=== PATIENT | male | born 1985 | race Caucasian/White ===

== ENCOUNTER 2021-12-27 16:49 | Emergency (ER) | payer BC, SELFPAY ==
--- NOTE | 2021-12-27 16:49 | ECG_ITS ---
APPROVED REPORT Exam: Resting ECG HR:88 bpm ECG Measurements Heart Rate 88 AXES NV 166 P 51 QRSd 101 QRS 51 QT 356 T 9 QTc 402 Conclusion SINUS RHYTHM INCOMPLETE RIGHT BUNDLE BRANCH BLOCK [90+ ms QRS DURATION, TERMINAL R IN V1/V2, 40+ ms S IN I/aVL/V4/V5/V6] BORDERLINE ECG UNCONFIRMED REPORT Electronically signed by : Mark Moss MD 12/27/2021 18:02:10
[2021-12-27 16:51] VITALS: BP 150/100; PULSE 91; RESP 18; TEMP 36.7; O2SAT 98; BMI 29.8
[2021-12-27 17:00] VITALS: BP 150/100; PULSE 91; RESP 17; O2SAT 99
--- NOTE | 2021-12-27 17:04 | XR_ITS ---
PROCEDURE INFORMATION: Exam: XR Chest Exam date and time: 12/27/2021 5:04 PM Age: 36 years old Clinical indication: Pain; Chest pressure; Additional info: Chest pain TECHNIQUE: Imaging protocol: XR of the chest. Views: 2 views. COMPARISON: CR XR CHEST PORTABLE 12/21/2019 5:21 PM FINDINGS: Lungs: No acute pulmonary findings. No pulmonary consolidation. Lung volumes within normal limits. Pleural spaces: Unremarkable. No significant pleural effusion. No pneumothorax. Heart/Mediastinum: The cardiac silhouette is normal. 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 Bones/joints: Minimal spinal degenerative changes, slight disc narrowing and spondylosis, minimal anterior wedge deformities in the midthoracic spine. IMPRESSION: 1. No acute findings. 2. No significant change compared with 12/21/2019.
[2021-12-27 17:15] LABS: Chloride 103 mmol/L (98-107); Sodium 137 mmol/L (136-145)
--- NOTE | 2021-12-27 17:17 | PC.NURSE ---
patient back from radiology
[2021-12-27 17:18] LABS: Blood Urea Nitrogen 20 mg/dl (9-20); Calcium 8.1 mg/dl (8.4-10.2); Carbon Dioxide 23 mmol/L (22.0-30.0); Creatinine Clearance Estimated 180 mL/min (50-200); Estimated Glomerular Filt Rate 109 ml/min (>60); GFR (African American) 132 ML/MIN (>60); Glucose 94 mg/dl (74-100)
[2021-12-27 17:25] LABS: Basophils # 0.1 K/mm3 (0-0.2); Basophils % 1.7 % (0.1-2.0); Eosinophils # 0.1 K/mm3 (0.0-0.4); Eosinophils % 1.1 % (0.1-12.0); Hematocrit 46.3 % (42.0-52.0); Hemoglobin 15.9 g/dL (14.1-18.0); Lymphocytes # 2.1 K/mm3 (0.7-4.5); Lymphocytes % 25.7 % (10-50); Mean Corpuscular HGB Conc 34.4 g/dL (31.8-35.4); Mean Platelet Volume 7.3 fl (7.4-10.4); Monocytes # 0.2 K/mm3 (0.1-1.0); Monocytes % 2.9 % (1.7-9.3); Neutrophils # 5.6 K/mm3 (1.8-7.8); Neutrophils % 68.5 % (37.0-80.0); Platelet Count 165 K/mm3 (142-424); Red Blood Count 5.14 M/mm3 (4.60-6.20); Red Cell Distribution Width 13.2 % (11.5-17.5); White Blood Count 8.2 K/mm3 (4.8-10.8)
[2021-12-27 17:30] VITALS: BP 127/86; PULSE 90; RESP 15; O2SAT 99
--- NOTE | 2021-12-27 17:38 | PC.NURSE ---
Dr Limon speaking with Dr Johnson.
[2021-12-27 17:41] LABS: Troponin I < 0.01 ng/ml (0.00-0.034)
--- NOTE | 2021-12-27 17:58 | HMH.EDGENADL ---
ED Disposition Clinical Impression: Atypical chest pain Disposition: Home Health Service Condition on Discharge: Good Instructions: DI for Atypical Chest Pain Additional Instructions: Additional instructions for CHEST PAIN: See your physician as soon as possible for further evaluation. Return immediately if worsening chest pain, vomiting, shortness of breath, fever, coughing of blood. Referrals: Flaquita Mclean [Primary Care Provider] - - Critical Care Critical Care Time: No Attestation: On 12/27/21, the high probability of a clinically significant, sudden or life threatening deterioration of the following system(s) required my full and direct attention, intervention and personal management. The time I documented below is in addition to time spent performing reported procedures but includes the following listed in this critical care notation. Medical Decision Making - Johnathan Inquiry Pt receiving controlled substance: No Vital Signs: 12/27/21 16:51 12/27/21 17:00 12/27/21 17:30 Temperature 98.0 F Temperature Source Oral Pulse Rate 91 H 90 Pulse Rate [Left Radial] 91 H Respiratory Rate 18 17 15 Blood Pressure 150/100 H 127/86 Blood Pressure [Right Arm] 150/100 H Blood Pressure Mean 111 99 Blood Pressure Mean [Right Arm] 116 Blood Pressure Source [Right Arm] Automatic Cuff Blood Pressure Position [Right Arm] Sitting 02 Sat by Pulse Oximetry 98 99 99 Oxygen Delivery Method Room Air 12/27/21 18:00 12/27/21 18:30 12/27/21 18:40 Temperature 98.0 F Temperature Source Oral Pulse Rate 78 85 90 Pulse Rate [Left Radial] Respiratory Rate 13 16 20 Blood Pressure 133/89 134/95 H 134/95 H Blood Pressure [Right Arm] Blood Pressure Mean 99 104 Blood Pressure Mean [Right Arm] Blood Pressure Source [Right Arm] Blood Pressure Position [Right Arm] 02 Sat by Pulse Oximetry 98 97 Oxygen Delivery Method Room Air - Lab Data Lab Results 12/27/21 16:54: WBC 8.2, RBC 5.14, Hgb 15.9, Hct 46.3, MCV 90.0, MCH 31.0, MCHC 34.4, RDW 13.2, Plt Count 165, MPV 7.3 L, Neut % (Auto) 68.5, Lymph % (Auto) 25.7, [place] % (Auto) 2.9, Eos % (Auto) 1.1, Baso % (Auto) 1.7, Neut # (Auto) 5.6, Lymph # (Auto) 2.1, [place] # (Auto) 0.2, Eos # (Auto) 0.1, Baso # (Auto) 0.1 12/27/21 16:54: Sodium 137, Potassium 4.0, Chloride 103, Carbon Dioxide 23, Anion Gap 15.0, BUN 20, Creatinine 0.80, Estimated Creat Clear 180, Estimated GFR 109, Est GFR ( Amer) 132, Glucose 94, Calcium 8.1 L, Troponin I < 0.01 Result diagrams: 12/27/21 16:54 12/27/21 16:54 - Radiology Data #1 Image(s): Chest Image Reviewed: Yes I have reviewed radiologist's interpretation PROCEDURE INFORMATION: Exam: XR Chest Exam date and time: 12/27/2021 5:04 PM Age: 36 years old Clinical indication: Pain; Chest pressure; Additional info: Chest pain TECHNIQUE: Imaging protocol: XR of the chest. Views: 2 views. COMPARISON: CR XR CHEST PORTABLE 12/21/2019 5:21 PM FINDINGS: Lungs: No acute pulmonary findings. No pulmonary consolidation. Lung volumes within normal limits. Pleural spaces: Unremarkable. No significant pleural effusion. No pneumothorax. Heart/Mediastinum: The cardiac silhouette is normal. Overlying animal rides manager electrodes. Bones/joints: Minimal spinal degenerative changes, slight disc narrowing and spondylosis, minimal anterior wedge deformities in the midthoracic spine. IMPRESSION: 1. No acute findings. 2. No significant change compared with 12/21/2019. - ECG Data Tracing #1 EKG interpreted by Alex Limon MD: Rhythm: sinus Rate: 88 [place]: normal Ectopy: none Conduction: Incomplete right bundle branch block ST Segment Changes: none T Wave Changes: none Q Waves: none No evidence of acute ischemia or injury - PAULO Score for Non-Stemi Age of Patient: 30-39 years old Heart Rate: 90-109 bp
[2021-12-27 18:00] VITALS: BP 133/89; PULSE 78; RESP 13; O2SAT 98
--- NOTE | 2021-12-27 18:13 | PC.NURSE ---
ED MD at
[2021-12-27 18:30] VITALS: BP 134/95; PULSE 85; RESP 16; O2SAT 97
[2021-12-27 18:40] VITALS: BP 134/95; PULSE 90; RESP 20; TEMP 36.7; O2SAT 98
== END 2021-12-27 18:41 | disposition home health service (06) ==
PROVIDERS: Emergency Provider Emergency Medicine; PCP Nurse Practitioner Family
DX: R07.89 Other chest pain (principal); Z87.891 Personal history of nicotine dependence
CPT/HCPCS: 71046; 80048; 84484; 85025; 93005; 99283

== ENCOUNTER 2024-05-21 08:02 | Observation (INO) | payer BC, SELFPAY ==
[2024-05-21] VITALS (8 sets, daily range): BP systolic 107–147; BP diastolic 66–91; PULSE 60–133; RESP 14–20; TEMP 36.7–37; O2SAT 95–98; BMI 29.1
--- NOTE | 2024-05-21 08:21 | ED_ITS ---
Discharge Plan Disposition Patient Disposition: Admitted Clinical Impressions Clinical Impression: Cellulitis, Sepsis, Hypomagnesemia Discharge ED Provider: Moris Ferreira [facility] [place] Chief complaint: Skin/Abscess/Foreign Body Stated complaint: Right ear plugged, Pain in buttox Time Seen by Provider: 05/21/24 08:21 History of Present Illness Provider Complaint: Patient states that he feels like his right ear is stopped up States it was itching like a few days ago and he stuck his finger in his ear and when he pulled it out it had a lot of sticky wax on it so he thinks it is stopped up also States that he takes a testosterone shot ever couple of weeks and on Saturday he was due for the shot and was out of the long needle and he used a short one now thinks it may be infected he is sore and has a hard knot on his right buttox and unable to sit on that side Related Data Home Medications ?Medication ?Instructions ?Recorded ?Confirmed testosterone cypionate 200 mg/mL 200 mg IM .EVERY 2 WEEKS 05/21/24 05/21/24 intramuscular oil Allergies Allergy/AdvReac Type Severity Reaction Status Date / Time No Known Allergies Allergy Verified 05/21/24 12:43 [facility] Disclaimer: The information contained in this section may have been updated after the patient was seen, as this information can be updated by other users. Medical History Low testosterone in male Family History (Updated 05/21/24 @ 12:52 by Nilsa Mccall RN) Other No significant family history Social History (Updated 05/21/24 @ 12:52 by Nilsa Mccall RN) Smoking Status: Current every day smoker second hand exposure: No alcohol intake: current alcohol intake frequency: holidays/special occasions only current occupational status: employed Travel in the last 8 weeks: None household members: spouse housing: house current occupational exposures/hazards: No caffeine: Yes ROS Obtained: Yes All systems reviewed & no additional complaints except as documented and Yes Systems reviewed as appropriate & no additional complaints except as documented Constitutional Constitutional: Reports system reviewed and no additional complaints, except as documented, Reports as per HPI, Denies body ache, Denies chills and Denies fever(s) ENT Ears, Nose, Mouth, and Throat: Reports system reviewed and no additional complaints, except as documented, Reports as per HPI and Reports other (feels like right ear is stopped up with wax) Cardiovascular Cardiovascular: Reports system reviewed and no additional complaints, except as documented and Reports as per HPI Respiratory Respiratory: Reports system reviewed and no additional complaints, except as documented and Reports as per HPI Gastrointestinal Gastrointestingal: Reports system reviewed and no additional complaints, except as documented and as per HPI Integumentary/Breasts Skin/Breast: Reports system reviewed and no additional complaints, except as documented, Reports as per HPI and Reports other Comments: pain in right buttock after testosterone shot on Saturday now has swollen hard knot states feels like he is sitting on a rock Physical Exam General General appearance: alert and in no apparent distress ENT ENT exam: Present mucous membranes moist Expanded ENT Exam TM/Canal exam: Bilateral TM: cerumen impaction Respiratory Respiratory exam: Present normal lung sounds bilaterally; Absent respiratory distress or wheezes Cardiovascular Cardiovascular exam: Present regular rate, normal rhythm and tachycardia Neurological Exam Neurological exam: Present alert, oriented X3 and normal gait Skin Skin exam: Present erythema (large area right buttock, hard, red, warm to the touch and tender since Saturday when he took testosterone shot with short needle) Medical Decision Making Johnathan Inquiry Pt receiving controlled substance: No Johnathan was queried for this patient: No Lab Data 05/21/24 09:09 05/21/24 09:09 Medical Decision Narrative: Patient states that he take testosterone injections every two weeks States normally he has a long needle but was out of them so he used a short needle and since then he has been having pain, redness, warmth and hard area on right buttock that has continued to get worse and larger Denies known fevers but states has felt hot States today he was unable to sit on his right buttock area and also not able to hear out of right ear feels like it is stopped up with wax, patient HR was noted 140's when arrived and checked multiple times and still remained in the mid 130's concern for size of area and elevated HR discussed with patient and he was moved to the ED for further work up and evaluation
[2024-05-21] MEDS: LACTATED RINGERS 1000ML 1,000 ML 999 ML IV ×2 (09:09→10:46)
[2024-05-21] MEDS: KETOROLAC 30MG/ML VIAL 15 MG IV (09:10)
[2024-05-21] MEDS: ACETAMINOPHEN 1,000MG/100ML VIAL 1000 MG IV (09:10)
--- NOTE | 2024-05-21 09:12 | ECG_ITS ---
APPROVED REPORT Exam: Resting ECG HR:123 bpm ECG Measurements Heart Rate 123 AXES RI 164 P 74 QRSd 87 QRS 75 QT 297 T 42 QTc 370 Conclusion SINUS TACHYCARDIA Electronically signed by : LION RUIZ, 05/22/2024 07:02:14
[2024-05-21 09:19] LABS: Basophils # 0.1 K/mm3 (0-0.2); Eosinophils # 0.3 K/mm3 (0.0-0.4); Lymphocytes # 1.7 K/mm3 (0.7-4.5); Monocytes # 0.5 K/mm3 (0.1-1.0); Neutrophils % 83.8 % (37.0-80.0)
[2024-05-21 09:23] LABS: Basophils % 0.8 % (0.1-2.0); Eosinophils % 2.1 % (0.1-12.0); Hematocrit 54.5 % (42.0-52.0); Lymphocytes % 10.3 % (10-50); Mean Corpuscular HGB Conc 33.7 g/dL (31.8-35.4); Mean Corpuscular Hemoglobin 30.6 pg (27.0-31.2); Mean Corpuscular Volume 90.8 fl (80-94); Mean Platelet Volume 7.7 fl (7.4-10.4); Monocytes % 3.1 % (1.7-9.3); Platelet Count 166 K/mm3 (142-424); White Blood Count 16.7 K/mm3 (4.8-10.8)
[2024-05-21 09:24] LABS: Hemoglobin 18.4 g/dL (14.1-18.0)
[2024-05-21 09:25] LABS: MANUAL DIFFERENTIAL MANUAL DIFFERENTIAL (MANUAL DIFF)
[2024-05-21 09:28] LABS: Albumin Level 4.7 g/dl (3.5-5.0); Chloride 103 mmol/L (98-107); Potassium 4.3 mmoL/L (3.5-5.1); Sodium 136 mmol/L (136-145)
[2024-05-21 09:31] LABS: Alanine Aminotransferase 25 U/L (12-78); Albumin/Globulin Ratio 1.3 (1.1-1.8); Alkaline Phosphatase 71 U/L (38-126); Anion Gap 13.3 mEq/L (5-15); Aspartate Amino Transferase 41 U/L (17-59); Bilirubin,Total 1.2 mg/dl (0.2-1.3); Blood Urea Nitrogen 7 mg/dl (9-20); Carbon Dioxide 24 mmol/L (22.0-30.0); Creatinine Clearance Estimated 154 mL/min (50-200); Estimated Glomerular Filt Rate 94 ml/min (>60); GFR (African American) 114 ML/MIN (>60); Globulin 3.5 g/dL (1.3-3.2); Total Protein,Serum 8.2 g/dl (6.3-8.2)
[2024-05-21 09:32] LABS: Calcium 9.2 mg/dl (8.4-10.2); Glucose 78 mg/dl (74-100); Lactic Acid 1.6 mmol/L (0.7-2.1)
[2024-05-21 09:44] LABS: Eosinophils % 3 % (0-3); Lymphocytes % 11 % (10-50); Monocytes % 5 % (2-9); Neutrophils % 81 % (42-76); Total Cells Counted 100
[2024-05-21 09:45] LABS: Platelet Estimate Normal; RBC Morphology Normal
[2024-05-21] MEDS: CEFEPIME HCL 2 GM in 0.9 % SODIUM CHLORIDE 100 ML IV ×2 (10:01→18:05)
--- NOTE | 2024-05-21 10:28 | HMH.EDGENADL ---
Discharge Plan Disposition Patient Disposition: Admitted Clinical Impressions Clinical Impression: Cellulitis, Sepsis, Hypomagnesemia Discharge ED Provider: Moris Ferreira General Adult HPI General Chief complaint: Skin/Abscess/Foreign Body Stated complaint: Right ear plugged, Pain in buttox Time Seen by Provider: 05/21/24 08:21 Mode of Arrival: Ambulatory Source of Information: Patient and Spouse Limitations: No Limitations Description of Symptoms (Recalled from ER Triage Doc. by RN): r ear pain, but redness and warmth to r buttock,tachy History of Present Illness HPI narrative: Please note that above description of symptoms, in this electronic medical record under categorization of recalled from ER triage doctor by RN are reflective of an initial nursing assessment, however, is not reflective of my full history and physical exam that was personally taken and clarified. Consequentially, this preceding description of symptoms, which may include the patient's categorized chief complaint in the EMR, do not reflect my personal clinical impression, and the ultimate description of history of present illness and patient stated complaints should be deferred to this section of the note. Unless stated otherwise or congruent with this section of the note, additional signs, symptoms, or incongruence should be interpreted as inaccurate with my clinical impression. Related Data Previous Rx's ?Medication ?Instructions ?Recorded metoprolol succinate 25 mg 25 mg PO DAILY ##30 12/21/19 tablet,extended release 24 hr Allergies Allergy/AdvReac Type Severity Reaction Status Date / Time No Known Allergies Allergy Verified 12/21/19 16:54 [facility] Disclaimer: The information contained in this section may have been updated after the patient was seen, as this information can be updated by other users. Social History Smoking Status: Current every day smoker second hand exposure: No alcohol intake: current alcohol intake frequency: holidays/special occasions only current occupational status: employed Travel in the last 8 weeks: None household members: spouse housing: house current occupational exposures/hazards: No caffeine: Yes ROS Obtained: Yes All systems reviewed & no additional complaints except as documented Physical Exam General General appearance: alert, in no apparent distress and anxious Head Head exam: atraumatic and normocephalic Eye Eye exam: Present normal appearance, PERRL and EOMI Neck Neck exam: Present normal inspection, full ROM and trachea midline Respiratory Respiratory exam: Absent respiratory distress, wheezes, stridor, accessory muscle use or prolonged expiratory phase Cardiovascular Cardiovascular exam: Present normal rhythm, tachycardia and other (Pulses equal symmetric in upper and lower extremities) Abdominal Exam Abdominal exam: Present soft; Absent distention, tenderness or pulsatile mass Extremities Exam Extremities exam: Absent edema Back Exam Back exam: Present other (Right gluteal erythema, induration, redness and warmth concerning for cellulitis. No palpable fluctuance) Neurological Exam Neurological exam: Present alert, oriented X3 and CN II-XII intact; Absent motor sensory deficit Skin Skin exam: Present warm and dry; Absent diaphoresis or erythema Medical Decision Making Medical Records Medical records reviewed: Yes I reviewed the patient's medical records. Johnathan Inquiry Pt receiving controlled substance: No Johnathan was queried for this patient: No Vital Signs: 05/21/24 08:56 05/21/24 09:00 05/21/24 09:30 Temperature 98.4 F Temperature Source Oral Pulse Rate 126 H 111 H Pulse Rate [Left] 133 H Respiratory Rate 20 14 Blood Pressure 135/88 129/73 Blood Pressure [Left Arm] 139/91 H Blood Pressure Mean [Left Arm] 107 Blood Pressure Source 02 Sat by Pulse Oximetry 95 96 97 Oxygen Delivery Method Room Air 05/21/24 10:00 05/21/24 12:05 Temperature 98.6 F Temperature Source Oral Pulse Rate 109 H 105 H Pulse Rate [Left] Respiratory Rate 18 18 Blood Pressure 124/80 133/75 Blood Pressure [Left Arm] Blood Pressure Mean [Left Arm] Blood Pressure Source Automatic Cuff 02 Sat by Pulse Oximetry 96 Oxygen Delivery Method Room Air Lab Data Lab Results 05/21/24 09:09: WBC 16.7 H, RBC 6.00, Hgb 18.4 H, Hct 54.5 H, MCV 90.8, MCH 30.6, MCHC 33.7, RDW 14.0, Plt Count 166, MPV 7.7, Neut % (Auto) 83.8 H, Lymph % (Auto) 10.3, [place] % (Auto) 3.1, Eos % (Auto) 2.1, Baso % (Auto) 0.8, Neut # (Auto) 14.0 H, Lymph # (Auto) 1.7, [place] # (Auto) 0.5, Eos # (Auto) 0.3, Baso # (Auto) 0.1, Total Counted 100, Neutrophils % (Manual) 81 H, Lymphocytes % (Manual) 11, Monocytes % (Manual) 5, Eosinophils % (Manual) 3, Platelet Estimate Normal, RBC Morphology Normal, Sodium 136, Potassium 4.3, Chloride 103, Carbon Dioxide 24, Anion Gap 13.3, BUN 7 L, Creatinine 0.90, Estimated Creat Clear 154, Estimated GFR 94, Est GFR ( Amer) 114, Glucose 78, Lactate 1.6, Calcium 9.2, Magnesium 0.6 L, Total Bilirubin 1.2, AST 41, ALT 25, Alkaline Phosphatase 71, Total Protein 8.2, Albumin 4.7, Globulin 3.5 H, Albumin/Globulin Ratio 1.3, TSH 0.59, Thyroxine (T4) 6.3 05/21/24 09:09 05/21/24 09:09 Orders (Tests/Meds): ED MEDICATIONS Generic Name Dose Route Start Last Admin Trade Name Freq PRN Reason Stop Dose Admin Acetaminophen 650 mg 05/21/24 11:27 Acetaminophen 325mg Tab PO 06/20/24 11:26 Q4HP PRN Fever or Mild Pain (1-3) Heparin Sodium (Porcine) 5,000 unit 05/21/24 11:30 Heparin Sodium 5,000 Unit/Ml Vial SQ 06/20/24 11:29 Q8H RAEANN Sodium Chloride 1,000 mls @ 50 mls/hr 05/21/24 11:30 Sod Chlor 0.9% 1000ml Bag IV 06/20/24 11:29 .Q20H RAEANN Ondansetron HCl 4 mg 05/21/24 11:27 Ondansetron 4mg/2ml Vial IV 06/20/24 11:26 Q8HP PRN Nausea Discontinued Medications Generic Name Dose Route Start Last Admin Trade Name Freq PRN Reason Stop Dose Admin Acetaminophen 1,000 mg 05/21/24 08:58 05/21/24 09:10 Acetaminophen 1,000mg/100ml Vial IV 05/21/24 08:59 1,000 mg ONCE ONE Administration Lactated Ringer's 1,000 mls @ 999 mls/hr 05/21/24 09:00 05/21/24 09:09 Lactated Ringer's 1000 Ml Bag IV 05/21/24 10:00 999 mls/hr .Q1H1M ONE Administration Cefepime HCl 2 gm/ Sodium 100 mls @ 200 mls/hr 05/21/24 09:48 05/21/24 10:01 Chloride IV 05/21/24 10:17 200 mls/hr ONCE ONE Administration Vancomycin/PEG/NA[place]/Lysine/Water 1.75 gm in 350 mls @ 175 mls/hr 05/21/24 10:00 05/21/24 10:43 Vancomycin 1.75gm/350ml (Peg) Premix IV 05/21/24 11:59 175 mls/hr ONCE ONE Administration Lactated Ringer's 1,000 mls @ 999 mls/hr 05/21/24 10:32 05/21/24 10:46 Lactated Ringer's 1000 Ml Bag IV 05/21/24 11:32 999 mls/hr .Q1H1M ONE Administration Magnesium Sulfate 2 gm in 50 mls @ 50 mls/hr 05/21/24 10:53 05/21/24 10:59 Magnesium Sulfate 2gm/50ml Premix IV 05/21/24 11:52 50 mls/hr ONCE ONE Administration Magnesium Sulfate 2 gm in 50 mls @ 50 mls/hr 05/21/24 10:53 05/21/24 11:40 Magnesium Sulfate 2gm/50ml Premix IV 05/21/24 11:52 50 mls/hr ONCE ONE Administration Lactated Ringer's 2,330 mls @ 1,165 mls/hr 05/21/24 10:15 05/21/24 11:39 Lactated Ringer's 1000 Ml Bag 30 ml/kg infuse over 2 hr (2330 ml) 05/21/24 12:14 Not Given IV .Q2H ONE Ketorolac Tromethamine 15 mg 05/21/24 08:58 05/21/24 09:10 Ketorolac 30mg/Ml Vial IV 05/21/24 08:59 15 mg ONCE ONE Administration Magnesium Oxide 800 mg 05/21/24 10:53 05/21/24 11:00 Magnesium Oxide 400mg Tablet PO 05/21/24 10:54 800 mg ONCE ONE Administration Miscellaneous 1 each 05/21/24 10:00 05/21/24 10:42 Vancomycin Consult Request NOTAPPLIC 06/20/24 09:59 1 each CONSULT PHARMACY RAEANN Administration ORDERS Category Date Time Status POCUS Point of Care (ER Only) Stat Exams 05/21/24 08:58 Completed Basic Metabolic Panel AMLAB Lab 05/22/24 06:00 Ordered Basic Metabolic Panel AMLAB Lab 05/23/24 06:00 Ordered Basic Metabolic Panel AMLAB Lab 05/24/24 06:00 Ordered Complete Blood Count Auto Diff AMLAB Lab 05/22/24 06:00 Ordered Complete Blood Count Auto Diff AMLAB Lab 05/23/24 06:00 Ordered Complete Blood Count Auto Diff AMLAB Lab 05/24/24 06:00 Ordered Complete Blood Count Auto Diff Stat Lab 05/21/24 09:09 Completed Comprehensive Metabolic Panel Stat Lab 05/21/24 09:09 Completed Lactic Acid Stat Lab 05/21/24 09:09 Completed Magnesium AMLAB Lab 05/22/24 06:00 Ordered Magnesium AMLAB Lab 05/23/24 06:00 Ordered Magnesium Stat Lab 05/21/24 09:09 Completed T4 (Thyroxine) Stat Lab 05/21/24 09:09 Completed TSH [Thyroid Stimulating Hormone] Stat Lab 05/21/24 09:09 Completed Blood Culture Stat Micro 05/21/24 09:11 Received Medical Decision Narrative: 38 history of testosterone deficiency receiving at home injections presenting with right gluteal swelling. Patient patient's providing history. Patient states that he received a testosterone injection 3 to 4 days ago, started having pain since then. Is now red, warm, associated with significant pain that is moderate in intensity, does not radiate. No blood in the stool, patient has been feeling febrile at home. Also states that today is the first day of felt jittery and anxious. No nausea, vomiting, diarrhea, chest pain, shortness of breath, any other concerns. History was obtained via conversation with patient and . On arrival, patient hemodynamically stable, alert, oriented x4, appropriate, GCS 15, moving all extremities spontaneously, pupils equal and reactive to light. Full physical exam performed and significant for anxious female no acute distress. He is tachycardic, normotensive. Afebrile. Lungs are clear to auscultation, cardiac exam with normal pulses, normal S1-S2. Right buttock is erythematous, inflamed, indurated, infected without obvious fluctuance. Differential includes cellulitis, abscess, sepsis, metabolic abnormality, endocrinologic abnormality, substance induced, withdrawal, among others. Patient placed on continuous cardiac monitoring and continuous pulse ox with initial blood pressure 139/91, heart rate 133, saturation 95% on room air. Independent interpretation of EKG shows sinus tachycardia 123 beats a minute without ST or T wave changes concerning for acute ischemia. MN 164, QRS 87, QTc 370 with normal axis. Patient was given Toradol, acetaminophen, fluid bolus, empiric vancomycin and cefepime for symptomatic management and correction of underlying abnormalities. Workup independently interpreted and significant for leukocytosis and neutrophilia. Lactate negative, chemistry nonactionable. Patient's magnesium low at 0.6. Normal thyroid test. On independent interpretation of imaging, patient with cellulitis without abscess right buttock on bedside [id number] ultrasound. On reevaluation, patient resting comfortably. Tachycardia improving and patient largely asymptomatic. Also given 4 g magnesium IV and 800 mg p.o. Given empiric antibiotics for developing sepsis in the setting of large cellulitis. Because patient high risk for clinical decompensation, deemed appropriate for inpatient admission. Results were relayed to patient who voiced understanding and patient was agreeable to inpatient admission and management. Patient was admitted to the hospital for further definitive management. Bezel Cutter disclaimer Much of this encounter note is an electronic carbon furnace operator spoken language to printed text. Electronic carbon furnace operator of the spoken language may permit errors. Although I have reviewed the note, some errors may still exist. Procedures Limited Ultrasound Indication:: Limited soft tissue ultrasound Indication: Right buttock cellulitis Identified structures: Location: Right buttock Findings: Cellulitis without abscess right buttock, extensive Impression: Extensive cellulitis of right buttock without loculated fluid collection Images were saved to permanent archive The study was technically adequate Soft Tissue CPT Codes: CPT Neck: 08472-22 CPT Upper extremity: 55730-60 CPT Axilla: 56157-41 CPT Chest wall: 40553-04 CPT Breast: 52010-54-XM/LT (complete), 39453-36-OU/LT (limited), CPT Upper Back: 56475-83 CPT Lower Back: 40566-73 CPT Abdominal Wall: 08142-57 CPT Pelvic Wall: 61652-00 CPT Lower Extremity: 60846-49 CPT Other Soft Tissue: 40127-64 This study was performed by me, and I personally interpreted all images/videos. Based on my clinical judgement, these images were adequate and did not necessitate further imaging. Critical Care Critical Care Time Critical Care Time: No
--- NOTE | 2024-05-21 10:31 | ECG_ITS ---
APPROVED REPORT Exam: Resting ECG HR:116 bpm ECG Measurements Heart Rate 116 AXES NE 152 P 68 QRSd 87 QRS 81 QT 303 T 12 QTc 372 Conclusion SINUS TACHYCARDIA Electronically signed by : LION RUIZ, 05/22/2024 07:02:42
[2024-05-21] MEDS: VANCOMYCIN CONSULT REQUEST 1 EACH NOTAPPLIC (10:42)
[2024-05-21] MEDS: VANCOMYCIN/WATER FOR INJ (PEG) 1.75 GM/350 ML PIGGYBACK IV (10:43)
[2024-05-21 10:46] LABS: Magnesium 0.6 mg/dl (1.6-2.3)
--- NOTE | 2024-05-21 10:47 | PC.NURSE ---
Mary Grace from lab called critical magnesium of 0.6. Repeated and verified. Dr. Ferreira notified.
[2024-05-21] MEDS: MAGNESIUM SULFATE IN WATER 2 GM/50 ML PIGGYBACK IV ×2 (10:59→11:40)
[2024-05-21 11:00] LABS: T4 (Thyroxine) 6.3 ug/dl (5.53-11.0)
[2024-05-21] MEDS: MAGNESIUM OXIDE 400MG TABLET 800 MG PO (11:00)
[2024-05-21 11:14] LABS: Thyroid Stimulating Hormone 0.59 uIU/mL (0.465-4.68)
--- NOTE | 2024-05-21 11:28 | PC.NURSE ---
Dr. Ferreira s/w Dr. Gooden for admission
--- NOTE | 2024-05-21 11:40 | PC.NURSE ---
PT ADMITTED ROOM 200, ALL STAFF NOTIFIED
--- NOTE | 2024-05-21 11:49 | PC.NURSE ---
Gave report to Rosa RUIZ on Med/Surg
[2024-05-21] MEDS: 0.9 % SODIUM CHLORIDE 1000ML 1,000 ML 50 ML IV (13:55)
--- NOTE | 2024-05-21 14:24 | PC.NURSE ---
Spoke to Dr. Huerta about surgery consult. Dr Huerta stated that since the pt was not made NPO and had lunch that he would not be able to do surgery today if needed, that he would be in to consult with pt in the morning and to make sure the pt was NPO at midnight and on an antibiotic.
--- NOTE | 2024-05-21 15:26 | EXP.PHA.CONS ---
Pharmacy Consult Date: 05/21/24 Time: 15:27 Referring provider: DR. THOMASON Reason for Consult:: VANCOMYCIN DOSING Allergies Allergy/AdvReac Type Severity Reaction Status Date / Time No Known Allergies Allergy Verified 05/21/24 12:43 Home Medications ?Medication ?Instructions ?Recorded ?Confirmed ?Type testosterone cypionate 200 mg/mL 200 mg IM .EVERY 2 WEEKS 05/21/24 05/21/24 History intramuscular oil New Prescriptions to Start Prescriptions: Height: 1.83 m Weight: 97.579 kg Laboratory Results:: Laboratory Results - last 24 hr 05/21/24 09:09: WBC 16.7 H, RBC 6.00, Hgb 18.4 H, Hct 54.5 H, MCV 90.8, MCH 30.6, MCHC 33.7, RDW 14.0, Plt Count 166, MPV 7.7, Neut % (Auto) 83.8 H, Lymph % (Auto) 10.3, [place] % (Auto) 3.1, Eos % (Auto) 2.1, Baso % (Auto) 0.8, Neut # (Auto) 14.0 H, Lymph # (Auto) 1.7, [place] # (Auto) 0.5, Eos # (Auto) 0.3, Baso # (Auto) 0.1, Total Counted 100, Neutrophils % (Manual) 81 H, Lymphocytes % (Manual) 11, Monocytes % (Manual) 5, Eosinophils % (Manual) 3, Platelet Estimate Normal, RBC Morphology Normal, Sodium 136, Potassium 4.3, Chloride 103, Carbon Dioxide 24, Anion Gap 13.3, BUN 7 L, Creatinine 0.90, Estimated Creat Clear 154, Estimated GFR 94, Est GFR ( Amer) 114, Glucose 78, Lactate 1.6, Calcium 9.2, Magnesium 0.6 L, Total Bilirubin 1.2, AST 41, ALT 25, Alkaline Phosphatase 71, Total Protein 8.2, Albumin 4.7, Globulin 3.5 H, Albumin/Globulin Ratio 1.3, TSH 0.59, Thyroxine (T4) 6.3 Medical History: Medical History (Updated 05/21/24 @ 12:51 by Nilsa Mccall RN) Low testosterone in male Assessment and Plan Assessment and plan all Dx Assessment and Plan for all problems:: Pharmacokinetic dosing service Objective: Patient: Floor: Age: 38 yo Serum creatinine: 0.9 mg/dL Height: 72.0 Inches Weight (kg): 97.6 Assessment: IBW (kg): 77.60 Dosing wt(kg): 97.6 Estimated Creatinine clearance (ml/min): 122.1 CRCL method: Cockcroft and Gault using ibw(default). Drug selected: Vancomycin Loading dose (mg): 0 Vd (liters): 78.1 (factor used: 0.8 L/kg) Terry (hr-1): 0.106 Half life (hrs): 6.54 Recommended dose: 1500 mg Interval: 8 hrs Infusion time (hrs): 2.0 Predicted peak (mcg/mL): 30.3 Predicted trough (mcg/mL): 16.04 Total body weight is being used for vancomycin dosing. Recommendations: Give Vancomycin 1500 mg q 8 hrs with an expected Cpeak of 30.3 mcg/ml and an expected Ctrough of 16.04 mcg/ml ----Vanco only - ignore for aminoglycosides----- CLvanco= 8.28 L/hr AUC 0-24 /JACEY Data: JACEY 0.5 mcg/mL: AUC/JACEY: 1087.0 JACEY 1.0 mcg/mL: AUC/JACEY: 543.5 --------- JACEY 1.5 mcg/mL: AUC/JACEY: 362.3 JACEY 2.0 mcg/mL: AUC/JACEY: 271.7
--- NOTE | 2024-05-21 17:25 | P.HP_ITS ---
History of Present Illness *Admission Date: 05/21/24 *Reason for visit:: Hip Pain *History of present illness: karey is a 38-year-old male who presents to the hospital due to right hip swelling after receiving recent testosterone injection. According the patient he has been getting testosterone injections for testosterone deficiency. Patient mentions his swelling is associated with warmth, redness, pain, it was getting worse so he decided to come to the hospital he also reported fevers. Otherwise denied nausea vomiting diarrhea constipation dysuria. [facility] Disclaimer: The information contained in this section may have been updated after the patient was seen, as this information can be updated by other users. Medical History Low testosterone in male Family History (Updated 05/21/24 @ 12:52 by Nilsa Mccall RN) Other No significant family history Social History (Updated 05/21/24 @ 12:52 by Nilsa Mccall RN) Smoking Status: Current every day smoker second hand exposure: No alcohol intake: current alcohol intake frequency: holidays/special occasions only current occupational status: employed Travel in the last 8 weeks: None household members: spouse housing: house current occupational exposures/hazards: No caffeine: Yes Review of Systems Constitutional Constitutional: Reports system reviewed and no additional complaints, except as documented Meds Home Medications and Allergies Home Medications ?Medication ?Instructions ?Recorded ?Confirmed ?Type testosterone cypionate 200 mg/mL 200 mg IM .EVERY 2 WEEKS 05/21/24 05/21/24 History intramuscular oil New Prescriptions to Start Prescriptions: Allergies Allergy/AdvReac Type Severity Reaction Status Date / Time No Known Allergies Allergy Verified 05/21/24 12:43 Exam Data for Last 24 hours Vital signs and Labs for Last 24 Hours: Temp Pulse Resp BP Pulse Ox O2 Del Method 98.3 F 104 H 18 140/91 H 98 Room Air 05/21/24 16:00 05/21/24 16:00 05/21/24 16:00 05/21/24 16:00 05/21/24 16:05/21/24 16:45 Laboratory Results - last 24 hr 05/21/24 09:09: WBC 16.7 H, RBC 6.00, Hgb 18.4 H, Hct 54.5 H, MCV 90.8, MCH 30.6, MCHC 33.7, RDW 14.0, Plt Count 166, MPV 7.7, Neut % (Auto) 83.8 H, Lymph % (Auto) 10.3, [place] % (Auto) 3.1, Eos % (Auto) 2.1, Baso % (Auto) 0.8, Neut # (Auto) 14.0 H, Lymph # (Auto) 1.7, [place] # (Auto) 0.5, Eos # (Auto) 0.3, Baso # (Auto) 0.1, Total Counted 100, Neutrophils % (Manual) 81 H, Lymphocytes % (Manual) 11, Monocytes % (Manual) 5, Eosinophils % (Manual) 3, Platelet Estimate Normal, RBC Morphology Normal, Sodium 136, Potassium 4.3, Chloride 103, Carbon Dioxide 24, Anion Gap 13.3, BUN 7 L, Creatinine 0.90, Estimated Creat Clear 154, Estimated GFR 94, Est GFR ( Amer) 114, Glucose 78, Lactate 1.6, Calcium 9.2, Magnesium 0.6 L, Total Bilirubin 1.2, AST 41, ALT 25, Alkaline Phosphatase 71, Total Protein 8.2, Albumin 4.7, Globulin 3.5 H, Albumin/Globulin Ratio 1.3, TSH 0.59, Thyroxine (T4) 6.3 I & O for Last 24 hours: Intake & Output 05/18/24 05/19/24 05/20/24 05/21/24 23:59 23:59 23:59 23:59 Intake Total 2750 / 2750 Output Total 0 / 0 Balance 2750 / 2750 Weight 97.579 kg Constitutional Constitutional: no acute distress *Routine HEENT Exam Head: Present normocephalic Eye: Present EOMI and PERRL ENT: Present mucous membranes moist *Routine Neck Exam Neck: Present supple; Absent lymphadenopathy *Routine Respiratory Exam Respiratory: Present CTA bilaterally *Routine Cardiovascular Exam Cardiovascular: Present RRR *Routine Abdominal Exam Abdominal: Present soft and normoactive bowel sounds; Absent tenderness *Routine Rectal Exam Rectal:: deferred *Routine Genitalia Exam Genitalia:: deferred *Routine Extremities Exam Extremities: Absent cyanosis, clubbing or edema Comments: swelling on buttock r side, red and warm *Routine Skin Exam Skin: Present warm; Absent rash *Routine Neurological Exam Neurological: Present alert and oriented X3 Assessment and Plan *Assessment and plan (1) Cellulitis: Status: Acute Category: Medical Code(s): L03.90 - Cellulitis, unspecified (2) Sepsis: Status: Acute Category: Medical Code(s): A41.9 - Sepsis, unspecified organism (3) Hypomagnesemia: Status: Acute Category: Medical Code(s): E83.42 - Hypomagnesemia Plan karey is a 38-year-old male who presents to the hospital due to right hip swelling after receiving recent testosterone injection. According the patient he has been getting testosterone injections for testosterone deficiency. Patient mentions his swelling is associated with warmth, redness, pain, it was getting worse so he decided to come to the hospital he also reported fevers. Otherwise denied nausea vomiting diarrhea constipation dysuria. Assessment and plan Right gluteal abscess, cellulitis Leukocytosis, tachycardia Start vancomycin, cefepime Consult general surgery for possible I&D Check blood cultures dvt ppx - lovenox
[2024-05-21] MEDS: ACETAMINOPHEN 325MG TAB 650 MG PO (18:10)
[2024-05-21] MEDS: HEPARIN SODIUM 5,000 UNIT/ML VIAL 5000 UNIT SQ (18:46)
[2024-05-21] MEDS: VANCOMYCIN/WATER FOR INJ (PEG) 1.5 GM/300 ML PIGGYBACK IV (20:17)
[2024-05-21] MEDS: MORPHINE 4MG/ML SYRINGE 4 MG IV (20:17)
[2024-05-22] VITALS (15 sets, daily range): BP systolic 117–186; BP diastolic 50–93; PULSE 80–98; RESP 16–20; TEMP 36.2–36.7; O2SAT 94–97
[2024-05-22] MEDS: CEFEPIME HCL 2 GM in 0.9 % SODIUM CHLORIDE 100 ML IV ×2 (01:24→09:58)
[2024-05-22] MEDS: VANCOMYCIN/WATER FOR INJ (PEG) 1.5 GM/300 ML PIGGYBACK IV (04:05)
[2024-05-22] MEDS: MORPHINE 4MG/ML SYRINGE 4 MG IV ×2 (04:07→10:44)
--- NOTE | 2024-05-22 04:52 | PC.NURSE ---
Alert and oriented. Complained of pain 2 times, treated per dec. Rested well throughout the night. Antibiotics given per dec. No other complaints from patient. Abscess to right buttock, red, hard, warm to touch. Call light in reach.
--- NOTE | 2024-05-22 06:52 | EXP.SURG.CON ---
History of Present Illness *Admission Date: 05/21/24 *Reason for visit:: Right buttock abscess *History of present illness: This is a 38-year-old gentleman seen in consultation from the primary service for evaluation regarding right buttock abscess. Please see HPI forwarded from admission H&P below. Emergency department evaluation included bedside ultrasound that revealed no large pocket purulence. Forwarded from admission H&P: Patient is a 38-year-old male who presents to the hospital due to right hip swelling after receiving recent testosterone injection. According the patient he has been getting testosterone injections for testosterone deficiency. Patient mentions his swelling is associated with warmth, redness, pain, it was getting worse so he decided to come to the hospital he also reported fevers. Otherwise denied nausea vomiting diarrhea constipation dysuria. [facility] Disclaimer: The information contained in this section may have been updated after the patient was seen, as this information can be updated by other users. Medical History (Updated 05/22/24 @ 06:54 by Tucker Huerta MD) Low testosterone in male Family History (Updated 05/21/24 @ 12:52 by Nilsa Mccall RN) No significant family history Social History (Updated 05/21/24 @ 12:52 by Nilsa Mccall RN) Smoking Status: Current every day smoker second hand exposure: No alcohol intake: current alcohol intake frequency: holidays/special occasions only current occupational status: employed Travel in the last 8 weeks: None household members: spouse housing: house current occupational exposures/hazards: No caffeine: Yes Meds Home Medications and Allergies Home Medications ?Medication ?Instructions ?Recorded ?Confirmed ?Type testosterone cypionate 200 mg/mL 200 mg IM .EVERY 2 WEEKS 05/21/24 05/21/24 History intramuscular oil New Prescriptions to Start Prescriptions: Allergies Allergy/AdvReac Type Severity Reaction Status Date / Time No Known Allergies Allergy Verified 05/21/24 12:43 Exam (Inpt) Vital signs and Labs for Last 24 Hours: Temp Pulse Resp BP Pulse Ox O2 Del Method 97.8 F 98 H 20 147/93 H 95 Room Air 05/22/24 04:00 05/22/24 04:00 05/22/24 04:00 05/22/24 04:00 05/22/24 04:00 05/22/24 04:51 Laboratory Results - last 24 hr 05/21/24 09:09: WBC 16.7 H, RBC 6.00, Hgb 18.4 H, Hct 54.5 H, MCV 90.8, MCH 30.6, MCHC 33.7, RDW 14.0, Plt Count 166, MPV 7.7, Neut % (Auto) 83.8 H, Lymph % (Auto) 10.3, [place] % (Auto) 3.1, Eos % (Auto) 2.1, Baso % (Auto) 0.8, Neut # (Auto) 14.0 H, Lymph # (Auto) 1.7, [place] # (Auto) 0.5, Eos # (Auto) 0.3, Baso # (Auto) 0.1, Total Counted 100, Neutrophils % (Manual) 81 H, Lymphocytes % (Manual) 11, Monocytes % (Manual) 5, Eosinophils % (Manual) 3, Platelet Estimate Normal, RBC Morphology Normal, Sodium 136, Potassium 4.3, Chloride 103, Carbon Dioxide 24, Anion Gap 13.3, BUN 7 L, Creatinine 0.90, Estimated Creat Clear 154, Estimated GFR 94, Est GFR ( Amer) 114, Glucose 78, Lactate 1.6, Calcium 9.2, Magnesium 0.6 L, Total Bilirubin 1.2, AST 41, ALT 25, Alkaline Phosphatase 71, Total Protein 8.2, Albumin 4.7, Globulin 3.5 H, Albumin/Globulin Ratio 1.3, TSH 0.59, Thyroxine (T4) 6.3 I & O for Labs for Last 24 Hours: Intake & Output 05/19/24 05/20/24 05/21/24 05/22/24 11:59 11:59 11:59 11:59 Intake Total 4687 / 4687 Output Total 0 / 0 Balance 4687 / 4687 Weight 215 lb 2 oz 215 lb 2 oz Constitutional: no acute distress Respiratory: Absent respiratory distress Cardiac: Absent Tachycardia Comment:: Right superior/mid buttock region with focal erythematous blush/induration. Results Labs 05/21/24 09:09 05/21/24 09:09 Labs: Laboratory Results - last 24 hr 05/21/24 09:09: WBC 16.7 H, RBC 6.00, Hgb 18.4 H, Hct 54.5 H, MCV 90.8, MCH 30.6, MCHC 33.7, RDW 14.0, Plt Count 166, MPV 7.7, Neut % (Auto) 83.8 H, Lymph % (Auto) 10.3, [place] % (Auto) 3.1, Eos % (Auto) 2.1, Baso % (Auto) 0.8, Neut # (Auto) 14.0 H, Lymph # (Auto) 1.7, [place] # (Auto) 0.5, Eos # (Auto) 0.3, Baso # (Auto) 0.1, Total Counted 100, Neutrophils % (Manual) 81 H, Lymphocytes % (Manual) 11, Monocytes % (Manual) 5, Eosinophils % (Manual) 3, Platelet Estimate Normal, RBC Morphology Normal, Sodium 136, Potassium 4.3, Chloride 103, Carbon Dioxide 24, Anion Gap 13.3, BUN 7 L, Creatinine 0.90, Estimated Creat Clear 154, Estimated GFR 94, Est GFR ( Amer) 114, Glucose 78, Lactate 1.6, Calcium 9.2, Magnesium 0.6 L, Total Bilirubin 1.2, AST 41, ALT 25, Alkaline Phosphatase 71, Total Protein 8.2, Albumin 4.7, Globulin 3.5 H, Albumin/Globulin Ratio 1.3, TSH 0.59, Thyroxine (T4) 6.3 Assessment and Plan *Assessment and plan (1) Abscess of right buttock: Status: Acute Category: Medical Code(s): L02.31 - Cutaneous abscess of buttock Plan: No large focal pocket of purulence noted per ultrasound; however, overlying changes consistent with developing/progressive abscess. Continue antibiotics Incision and drainage of abscess this morning I have discussed the risks and benefits including, but not limited to: Bleeding Infection Damage to surrounding tissue Inherent risks of sedation The patient agrees to proceed.
[2024-05-22 07:04] LABS: Basophils # 0.1 K/mm3 (0-0.2); Basophils % 0.6 % (0.1-2.0); Eosinophils # 0.5 K/mm3 (0.0-0.4); Eosinophils % 3.9 % (0.1-12.0); Hematocrit 51.4 % (42.0-52.0); Hemoglobin 16.6 g/dL (14.1-18.0); Lymphocytes # 2.1 K/mm3 (0.7-4.5); Lymphocytes % 15.1 % (10-50); Mean Corpuscular HGB Conc 32.2 g/dL (31.8-35.4); Mean Corpuscular Hemoglobin 30.2 pg (27.0-31.2); Mean Corpuscular Volume 93.9 fl (80-94); Mean Platelet Volume 7.8 fl (7.4-10.4); Monocytes # 0.5 K/mm3 (0.1-1.0); Monocytes % 3.5 % (1.7-9.3); Neutrophils # 10.6 K/mm3 (1.8-7.8); Neutrophils % 76.9 % (37.0-80.0); Platelet Count 173 K/mm3 (142-424); Red Blood Count 5.47 M/mm3 (4.60-6.20); White Blood Count 13.7 K/mm3 (4.8-10.8)
--- NOTE | 2024-05-22 07:18 | P.PNANES_ITS ---
[facility] Disclaimer: The information contained in this section may have been updated after the patient was seen, as this information can be updated by other users. Medical History (Updated 05/22/24 @ 06:54 by Tucker Huerta MD) Low testosterone in male Family History (Updated 05/21/24 @ 12:52 by Nilsa Mccall, RN) Other No significant family history Social History (Updated 05/21/24 @ 12:52 by Nilsa Mccall RN) Smoking Status: Current every day smoker second hand exposure: No alcohol intake: current alcohol intake frequency: holidays/special occasions only substance use type: denies use current occupational status: employed Travel in the last 8 weeks: None household members: spouse housing: house current occupational exposures/hazards: No caffeine: Yes [facility] Anesthesia Checklist Patient Identification Patient Identification: Arm Band Structural Data Admitted From: Home Planned Operative Procedure/s: I&D Right Buttock Abscess Consent for Planned Operative Procedure(s) Verified: Yes Verified Documents: Surgical Consent and History and Physical NPO Status Verified Time NPO: 00:00 Additional verifications Anesthesia Reactions: No Airway Assessment Mallampati Score:: Class II C-Spine Mobility Assessed: Yes TMJ Mobility Assessed: Yes Dentition: Good Dentition Neurological Assessment Level of Consciousness: Awake, Alert and Appropriate Anesthesia Plan Anesthesia Risk discussed: Yes Anesthesia Plan: Verified ASA Class: II Anesthesia Type: General
[2024-05-22 07:19] LABS: Chloride 106 mmol/L (98-107); Potassium 4.2 mmoL/L (3.5-5.1); Sodium 138 mmol/L (136-145)
[2024-05-22 07:22] LABS: Anion Gap 9.2 mEq/L (5-15); Blood Urea Nitrogen 7 mg/dl (9-20); Calcium 8.4 mg/dl (8.4-10.2); Carbon Dioxide 27 mmol/L (22.0-30.0); Creatinine Clearance Estimated 154 mL/min (50-200); Estimated Glomerular Filt Rate 94 ml/min (>60); GFR (African American) 114 ML/MIN (>60); Glucose 92 mg/dl (74-100)
[2024-05-22 07:23] LABS: Magnesium 2.5 mg/dl (1.6-2.3)
[2024-05-22] MEDS: LACTATED RINGERS 1000ML 1,000 ML 25 ML IV (07:47)
--- NOTE | 2024-05-22 07:47 | SUR.OPER ---
Per MD Huerta, no need for intraoperative abx due to pt being covered by abx from 2nd floor
[2024-05-22] MEDS: LIDOCAINE 1% 20ML MDV 20 ML IJ (07:50)
--- NOTE | 2024-05-22 07:57 | P.OP_ITS ---
Date of procedure: 05/22/24 Pre-op Diagnosis:: Right buttock abscess Post-op Diagnosis:: Same Procedure performed:: Incision and drainage of right buttock abscess Surgeon:: Tucker Huerta MD ROUTE DELIVERY SUPERVISOR:: Nolan Mishra Anesthesia: LMA Estimated blood loss (mL): 15 Operative findings:: Complex multi-focal right superior/mid buttock abscess Operative note:: After informed consent was obtained the patient was taken to the operating room and placed in the supine position. General anesthesia with a laryngeal mask airway was achieved. He was then transferred to a left lateral decubitus position. The right buttock region was prepped and draped in a sterile fashion. An elliptical incision was made around the central area of palpable abnormality. A combination of blunt dissection and electrocautery were utilized to transect through the deeper subcutaneous tissue. A pocket of purulence was encountered. The pocket of purulence was evacuated. The wound was thoroughly irrigated. Electrocautery was utilized to achieve hemostasis and the wound was then packed with Kerlix. The entire region was infiltrated with 1% lidocaine. Dressings were applied and the patient was transferred to recovery in stable condition after removal of his laryngeal mask airway. Condition: stable Disposition: PACU Specimens:: none Complications:: no immediate
--- NOTE | 2024-05-22 08:11 | EXP.ANES.I ---
[facility] Anesthesia Record Part I Anesthesia Record I Intake, IV Amount: 600 Hydration: Adequate Estimated blood loss (mL): 5 Urine output (mL): 0 Blood Products used (#): none Blood Pressure: 158/79 SaO2: 94 Pulse Rate: 97 Airway Patency: Patent Respiratory Rate: 16 Temperature: 97.1 F Patient is:: Drowsy and Stable Stable to PACU at:: 08:05
--- NOTE | 2024-05-22 09:15 | EXP.ANES.II ---
[facility] Anesthesia Record Part II Anesthesia Record Part II Discharge Time: 08:35 Destination: Medical Surgical Department PACU nurse assessment reviewed?: Yes Patient Condition:: Good Anesthesia Complications:: None Swallowing reflex intact?: Yes Airway Patency: Patent Cyanosis?: No Blood Pressure: 176/63 SaO2: 95 Respiratory Rate: 17 Pulse Rate: 92 Temperature: 97.1 F Mental Status: Alert & Oriented Pain level:: 0 Nausea and/or vomitting:: None Intake, IV Amount: 0 Hydration: Adequate
[2024-05-22] MEDS: HYDROCODONE/APAP 5/325 MG TABLET 1 TAB PO (11:44)
--- NOTE | 2024-05-22 11:45 | EXP.DC.SUM ---
General Admission date:: 05/21/24 Discharge date: 05/22/24 HPI HPI HPI: karey is a 38-year-old male who presents to the hospital due to right hip swelling after receiving recent testosterone injection. According the patient he has been getting testosterone injections for testosterone deficiency. Patient mentions his swelling is associated with warmth, redness, pain, it was getting worse so he decided to come to the hospital he also reported fevers. Otherwise denied nausea vomiting diarrhea constipation dysuria. Hospital Course Hospital Course Hospital Course: Patient is a 38-year-old male who presents to the hospital due to right hip swelling after receiving recent testosterone injection. According the patient he has been getting testosterone injections for testosterone deficiency. Patient mentions his swelling is associated with warmth, redness, pain, it was getting worse so he decided to come to the hospital he also reported fevers. Otherwise denied nausea vomiting diarrhea constipation dysuria. Patient had I&D of R gluteal abscess by general surgery, tolerated well, he is prescribes augmentin and Doxycyclin for MRSA coverage. Patient is stable for discharge from medical standpoint, patient agrees with the dischagre plan, he is also given f/u with GS and PCP. On the date of discharge, the patient reported feeling stable. The patient was found not to be in any acute distress, and no new abnormalities on physical examination. Further, the patient expressed appropriate understanding of, and agreement with, the discharge recommendations, medications, and plan. Time spent 37 mins Exam Data for Last 24 hours Vital signs and Labs for Last 24 Hours: Temp Pulse Resp BP Pulse Ox O2 Del Method 97.1 F L 92 H 17 176/63 H 95 Room Air 05/22/24 08:11 05/22/24 08:35 05/22/24 09:15 05/22/24 08:35 05/22/24 08:35 05/22/24 11:00 Laboratory Results - last 24 hr 05/22/24 06:47: WBC 13.7 H, RBC 5.47, Hgb 16.6, Hct 51.4, MCV 93.9, MCH 30.2, MCHC 32.2, RDW 14.0, Plt Count 173, MPV 7.8, Neut % (Auto) 76.9, Lymph % (Auto) 15.1, [place] % (Auto) 3.5, Eos % (Auto) 3.9, Baso % (Auto) 0.6, Neut # (Auto) 10.6 H, Lymph # (Auto) 2.1, [place] # (Auto) 0.5, Eos # (Auto) 0.5 H, Baso # (Auto) 0.1, Sodium 138, Potassium 4.2, Chloride 106, Carbon Dioxide 27, Anion Gap 9.2, BUN 7 L, Creatinine 0.90, Estimated Creat Clear 154, Estimated GFR 94, Est GFR ( Amer) 114, Glucose 92, Calcium 8.4, Magnesium 2.5 H D I & O for Last 24 hours: Intake & Output 05/19/24 05/20/24 05/21/24 05/22/24 23:59 23:59 23:59 23:59 Intake Total 3550 / 3550 1737 / 1737 Output Total 0 / 0 0 / 0 Balance 3550 / 3550 1737 / 1737 Weight 97.579 kg Microbiology Reports for the Last 24 Hours: Microbiology 05/21/24 09:11 Blood Blood Culture - Preliminary NO GROWTH AFTER 24 HOURS 05/21/24 09:09 Blood Blood Culture - Preliminary NO GROWTH AFTER 24 HOURS Constitutional Constitutional: no acute distress *Routine HEENT Exam Head: Present normocephalic Eye: Present EOMI and PERRL ENT: Present mucous membranes moist *Routine Neck Exam Neck: Present supple; Absent lymphadenopathy *Routine Respiratory Exam Respiratory: Present CTA bilaterally *Routine Cardiovascular Exam Cardiovascular: Present RRR *Routine Abdominal Exam Abdominal: Present soft and normoactive bowel sounds; Absent tenderness *Routine Extremities Exam Extremities: Absent cyanosis, clubbing or edema *Routine Skin Exam Skin: Present warm; Absent rash *Routine Neurological Exam Neurological: Present alert and oriented X3 Results Data Completed and Pending Labs on day of discharge: Labs from last 24 hours 05/22/24 06:47 WBC 13.7 H RBC 5.47 Hgb 16.6 Hct 51.4 MCV 93.9 MCH 30.2 MCHC 32.2 RDW 14.0 Plt Count 173 MPV 7.8 Neut % (Auto) 76.9 Lymph % (Auto) 15.1 [place] % (Auto) 3.5 Eos % (Auto) 3.9 Baso % (Auto) 0.6 Neut # (Auto) 10.6 H Lymph # (Auto) 2.1 [place] # (Auto) 0.5 Eos # (Auto) 0.5 H Baso # (Auto) 0.1 Sodium 138 Potassium 4.2 Chloride 106 Carbon Dioxide 27 Anion Gap 9.2 BUN 7 L Creatinine 0.90 Estimated Creat Clear 154 Estimated GFR 94 Est GFR ( Amer) 114 Glucose 92 Calcium 8.4 Magnesium 2.5 H D Preliminary micro results at discharge 05/21/24 09:11 Blood Culture - Preliminary Blood NO GROWTH AFTER 24 HOURS 05/21/24 09:09 Blood Culture - Preliminary Blood NO GROWTH AFTER 24 HOURS DS: Diagnosis Discharge Diagnosis (1) Abscess of right buttock: Status: Acute Code(s): L02.31 - Cutaneous abscess of buttock Meds Home Medications and Allergies Home Medications ?Medication ?Instructions ?Recorded ?Confirmed ?Type testosterone cypionate 200 mg/mL 200 mg IM .EVERY 2 WEEKS 05/21/24 05/21/24 History intramuscular oil amoxicillin 500 mg-potassium 1 tab PO Q12H 7 days #14 tabs 05/22/24 Rx clavulanate 125 mg tablet (Augmentin) doxycycline hyclate 100 mg capsule 100 mg PO BID 7 days #14 caps 05/22/24 Rx hydrocodone 5 mg-acetaminophen 325 1 tab PO Q8H PRN pain 3 days #9 05/22/24 Rx mg tablet tabs New Prescriptions to Start Prescriptions: amoxicillin-pot clavulanate [Augmentin] Giacomo,Irfan doxycycline hyclate Giacomo,Irfan hydrocodone-acetaminophen Giacomo,Irfan Allergies Allergy/AdvReac Type Severity Reaction Status Date / Time No Known Allergies Allergy Verified 05/21/24 12:43 Discharge Plan Disposition Patient Disposition: Home, Self-Care Condition: Good Follow up Plan Follow up with: Keiry Hargrove APRN [Referring] - 06/01/24 2:00 pm Tucker Huerta MD [Staff Physician] - 05/29/24 10:00 am Prescriptions/Medication Reconciliation: New amoxicillin-pot clavulanate [Augmentin] 500-125 mg tablet 1 tab PO Q12H 7 Days Qty: 14 0RF doxycycline hyclate 100 mg capsule 100 mg PO BID 7 Days Qty: 14 0RF hydrocodone-acetaminophen 5-325 mg tablet 1 tab PO Q8H PRN (Reason: pain) 3 Days Qty: 9 0RF Continued testosterone cypionate 200 mg/mL oil 200 mg IM .EVERY 2 WEEKS Patient Comments: INJECT 1 ML (CC) INTRAMUSCULARLY ONCE EVERY 14 DAYS Rx Instructions: takes every two weeks Problem Reconciliation Problems Reviewed?: Yes Patient Discharge Instructions ACTIVITY: Ambulate as tolerated DIET: continue same diet Patient Instructions: DI for Cellulitis -- Adult, DI for Surgical Site Infection, DI for Incision and Drainage Print Language: Qatari Providers Primary Care Provider: Provider,Referral Admit Provider: Alexandru Gooden Attending Provider: Alexandru Gooden
--- NOTE | 2024-05-22 12:28 | PC.NURSE ---
educated and pt about dsg change and demonstrated how to do it. per dr. alba do dsg change atleast daily .
--- NOTE | 2024-05-25 12:50 | CARE MANAGER ---
Contacted patient related to hospital discharge. Patient states that he is trying to save his pain medication just for dressing changes due to not having enough pain medication to last until his appointment. Encouraged him to call the surgeon's office and see if they could get him in sooner and explain to them the issues with the pain medication. He states other than the pain he is doing well and he is taking his antibiotic. He is aware of follow up appointment with doctors.
== END 2024-05-22 12:20 | disposition home or self-care (01) ==
LOC: UTC 08:10 → ER 08:48 → 2ND 11:42
PROVIDERS: Surgery; Admitting Provider Internal Medicine; Emergency Provider Emergency Medicine; Visit Provider Internal Medicine
DX: L02.31 Cutaneous abscess of buttock; A41.9 Sepsis, unspecified organism; E83.42 Hypomagnesemia; F17.210 Nicotine dependence, cigarettes, uncomplicated
CPT/HCPCS: 10061; 36415; 80048; 80050; 80053; 83605; 83735; 84436; 84443; 85007; 85025; 85027; 87040; 93005; 99285; G0378; J0131; J1100; J1644; J1885; J2250; J2270; J2405; J3010; J3475; J7120

== ENCOUNTER 2024-10-09 14:39 | Outpatient (CLI) | payer BC, SELFPAY ==
--- NOTE | 2024-10-09 14:43 | XR_ITS ---
FINAL REPORT CLINICAL HISTORY: LT SIDE CHEST WALL PAIN COMPARISON: None FINDINGS: LEFT RIBS WITH CHEST A single PA view of the chest and three views of the left ribs were obtained. The heart and mediastinum within normal limits. There is mild atelectasis at the lung bases. There is no pneumothorax. There is no acute displaced rib fracture. IMPRESSION: Mild atelectasis at the lung bases. No displaced rib fracture with no pneumothorax Reviewed, Interpreted and Dictated by Fabian Parra MD Transcribed by Kathi Basurto Authenticated and [facility]
== END 2024-10-09 23:59 | disposition home or self-care (01) ==
LOC: RAD 14:40
PROVIDERS: Visit Provider Family Medicine
DX: R07.89 Other chest pain (principal)
CPT/HCPCS: 71101

== ENCOUNTER 2025-03-14 11:08 | Outpatient (CLI) | payer BC, SELFPAY ==
[2025-03-14 19:51] LABS: Coronavirus 19, PCR Not Detected (NotDetected); Influenza A, PCR Not Detected (NotDetected); Influenza B, PCR Not Detected (NotDetected)
== END 2025-03-14 23:59 | disposition home or self-care (01) ==
LOC: LAB.DROPOF 03-16 11:13
PROVIDERS: PCP Student in an Organized Health Care Education/Training Program; Visit Provider Student in an Organized Health Care Education/Training Program
DX: R50.9 Fever, unspecified (principal)
CPT/HCPCS: 87636